=== PATIENT | female | born 1995 | race Caucasian/White ===

== ENCOUNTER 2018-12-19 09:44 | Day surgery (SDC) | payer OTHER ==
[2018-12-19] MEDS ORDERED: FENTANYL CITRATE INJ/PF 100 MCG/2 ML AMPUL ONE (11:15)
[2018-12-19] MEDS ORDERED: CARBOXYMETHYLCELLULOSE SOD 0.5% 0.4 ML DROPERETTE ONE (11:15)
[2018-12-19] MEDS ORDERED: MIDAZOLAM 2 MG/2 ML INJ ONE (11:15)
[2018-12-19] MEDS ORDERED: ONDANSETRON HCL INJ/PF 4 MG/2 ML SDV ONE (11:15)
[2018-12-19] MEDS ORDERED: ROCURONIUM BROMIDE INJ 50 MG/5 ML VIAL IV ONE (11:16)
[2018-12-19] MEDS ORDERED: DEXAMETHASONE SOD PHOS INJ 10 MG/1 ML VIAL ONE (11:16)
[2018-12-19] MEDS ORDERED: SUCCINYLCHOLINE CHLORIDE INJ 200 MG/10 ML VIAL ONE (11:16)
[2018-12-19] MEDS ORDERED: PROPOFOL INJ 200 MG/20 ML VIAL IV ONE (11:16)
[2018-12-19] MEDS ORDERED: HYDROMORPHONE HCL INJ/PF 2 MG/ML AMPULE ONE (11:17)
[2018-12-19] MEDS ORDERED: DIPHENHYDRAMINE HCL 50 MG/ML VIAL ONE (11:17)
[2018-12-19] MEDS ORDERED: OXYMETAZOLINE HCL 0.05% NASAL SPRAY 15 ML BOTTLE ONE (11:20)
[2018-12-19] MEDS ORDERED: BUPIVACAINE HCL 0.5%/EPI 1:200000 INJ 1.8 ML CARTRIDGE ONE (11:20)
[2018-12-19] MEDS ORDERED: LIDOCAINE 1% INJ-PF (10 MG/ML) 30 ML SDV ONE (11:28)
--- NOTE | 2018-12-24 15:39 | [facility]ARE OPERATIVE REPORT E ---
[facility] NAME: TIFFANY HURTADO AGE: 23Y DATE OF SURGERY: 12/19/2018 ROOM: PREOPERATIVE DIAGNOSES: 1. CHRONIC TONSILLITIS. 2. TONSIL STONES. POSTOPERATIVE DIAGNOSES: 1. CHRONIC TONSILLITIS. 2. TONSIL STONES. OPERATION: Bilateral tonsillectomy, patient age greater than 12. SURGEON: LELO COHEN D.O. ANESTHESIA: General endotracheal tube. ANESTHESIA STAFF: DOM Ca. ESTIMATED BLOOD LOSS: 5 mL. FLUIDS: 700 mL. COMPLICATIONS: None. DRAINS: None. SPONGE COUNT: Verified. MATERIALS FORWARDED SPECIMEN: Left and right tonsillar tissue. FINDINGS: 1. The tonsils were 2+ in size, were endophytic in nature, were cryptic in appearance and were with tonsillar debris present bilateral. 2. The soft palatal tissues were redundant in nature and the uvula was unremarkable in appearance. INDICATIONS: This is a 23-year-old white female patient who was seen and evaluated in the [facility] office. The patient had been referred for and she complained of a long-standing history of chronic tonsillitis symptoms with history consistent with keratosis pharyngeus over the years. The patient has desired to undergo tonsil surgery over the years to move beyond her chronic tonsil problems. After extensive discussion with the patient, recommendation and plan was for a tonsillectomy, which she voiced an understanding of and agreed with. The procedure and all of its risks and complications were all discussed in detail with the patient, which she voiced an understanding of, agreed with and consent was obtained. PROCEDURE: The patient was taken to the main operating room and placed on the operating room table in the supine position. Appropriate monitors were placed. Using mask and IV access, general anesthesia was induced. The patient was next transorally intubated without difficulty. The patient was rotated 90 degrees and positioned for tonsil surgery. The patient's lips, teeth, tongue and inside of the mouth were inspected and noted to be without defects. There was a mouth gag inserted. It was opened, and the patient was placed into suspension. There was a soft catheter placed through the patient's nose that was used to suspend the soft palate. Findings are as noted above. At this point, the plasma J-hook device was used to dissect and remove tonsillar tissue on each side. This device was also used to provide adequate hemostasis. Saline irritation was performed and suctioned. There was adequate hemostasis noted. The soft catheter was next released and removed from the patient's nose. The mouth gag was removed from the patient's mouth without difficulty. There was no damage to the lips, teeth, tongue, gums, or inside of the mouth. The patient was then returned to the anesthesia staff and was allowed to emerge from general anesthesia. The patient was extubated in the main operating room and was then transported to the post-anesthesia recovery unit in stable condition. There were no complications. DICTATING PHYSICIAN: LELO COHEN D.O. [id number] PHY#: [id number] ID: [id number] JOB#: [id number] ACCT: [id number] cc:LELO COHEN D.O. >
== END 2018-12-19 14:10 | disposition home or self-care (01) ==
LOC: SC 09:44
PROVIDERS: ATTEND Otolaryngology
DX: J35.01 Chronic tonsillitis (principal); J35.8 Other chronic diseases of tonsils and adenoids
CPT/HCPCS: 88304 ×2; 42826; J2250; J3490 ×4; J1200; J3010; J1170; J0330; J2405; J2704; J1100; 170